=== PATIENT | female | born 1990 | race Caucasian/White ===

== ENCOUNTER 2017-04-18 09:18 | Emergency (ER) | payer SELFPAY ==
[~2017-04-18] VITALS: Ht 167.6 cm; Wt 70.0 kg
[2017-04-18 11:15] VITALS: BP 136/81
== END 2017-04-18 11:30 | disposition home or self-care (01) ==
LOC: ER 09:55
DX: T40.601A Poisoning by unspecified narcotics, accidental (unintentional), initial encounter (principal); F13.10 Sedative, hypnotic or anxiolytic abuse, uncomplicated; F17.200 Nicotine dependence, unspecified, uncomplicated; F15.10 Other stimulant abuse, uncomplicated; F10.10 Alcohol abuse, uncomplicated
CPT/HCPCS: 99283; Z7610

== ENCOUNTER 2023-01-05 18:29 | Emergency (ER) | payer SELFPAY ==
[~2023-01-05] VITALS: Ht 167.6 cm; Wt 77.0 kg
[2023-01-05 18:40] VITALS: BP 114/77; PULSE 83; RESP 16; TEMP 98.5; O2SAT 99
== END 2023-01-05 21:15 | disposition left against medical advice (07) ==
LOC: ER 18:29
DX: Z53.21 Procedure and treatment not carried out due to patient leaving prior to being seen by health care provider (principal)
CPT/HCPCS: 99281

== ENCOUNTER 2024-12-07 23:42 | Emergency (ER) | payer MEDICAID ==
[~2024-12-07] VITALS: Ht 167.6 cm; Wt 88.0 kg
[2024-12-07 23:50] VITALS: O2SAT 99
[2024-12-08 00:59] VITALS: BP 136/79; PULSE 87; RESP 14; TEMP 36.8; O2SAT 100
[2024-12-08 01:29] LABS: BASOPHILS % 0.6 % (0.0-2.0); EOSINOPHILS % 0.9 % (0.0-5.0); HEMATOCRIT. 37.7 % (36.0-48.0); HEMOGLOBIN. 12.7 g/dL (12.0-16.0); LYMPHOCYTES % 30.4 % (20.0-50.0); MEAN PLATELET VOLUME 7.6 fl (7.4-10.4); MONOCYTES % 4.9 % (2.0-8.0); NEUTROPHILS % 63.2 % (40.0-76.0); PLATELET 307 x1000/uL (130-400); RED BLOOD CELL COUNT 4.24 mill/uL (4.2-5.4); RED CELL DISTRIBUTION WIDTH 14.3 % (11.6-14.6)
[2024-12-08 01:41] LABS: CREATININE 0.9 mg/dL (0.6-1.0); UREA NITROGEN BLOOD 10 mg/dL (9-23)
== END 2024-12-08 05:30 | disposition left against medical advice (07) ==
LOC: ER 23:42
DX: R10.30 Lower abdominal pain, unspecified (principal); Z53.21 Procedure and treatment not carried out due to patient leaving prior to being seen by health care provider
CPT/HCPCS: 36415; 80048; 85025